=== PATIENT | female | born 1990 | race Asian ===

== ENCOUNTER 2024-06-13 05:11 | Inpatient (IN) | payer MEDICAID, OTHER, SELFPAY ==
[2024-06-10 11:34] LABS: Hematocrit 38.5 % (34.9-44.5); Platelet Count 181 10x3/uL (150-450)
[2024-06-10 12:06] LABS: HBsAg Index 0.21 S/CO (0-0.99); Hep B Surf Ag Non-Reactive S/CO (NonReactive)
[2024-06-10 12:08] LABS: Syphilis Antibody Nonreactive (Nonreactive); Syphilis Antibody Index 0.05 S/CO (<1.00 Non-Reactive)
[2024-06-13 05:59] VITALS: BMI 34.0
[2024-06-13] MEDS ORDERED: Ondansetron PF 4 MG/2 ML Vial IVP PRN ×3 (06:14→08:48)
[2024-06-13] MEDS ORDERED: Promethazine HCl 25 MG/ML VIAL IM PRN ×2 (06:14→08:48)
[2024-06-13] MEDS ORDERED: Acetaminophen 500 MG TAB PO PRN (06:14)
[2024-06-13] MEDS ORDERED: Misoprostol 200 MCG TAB PR PRN ×2 (06:14→08:34)
[2024-06-13] MEDS ORDERED: Methylergonovine 0.2 MG/ML VIAL IM PRN ×2 (06:14→08:34)
[2024-06-13] MEDS ORDERED: Tranexamic Acid 1,000 MG/10 ML VIAL IVP PRN (06:14)
[2024-06-13] MEDS ORDERED: Carboprost 250 MCG/ML AMP IM PRN (06:14)
[2024-06-13] MEDS ORDERED: hydrALAZINE 20 MG/ML VIAL SLOW IVP PRN ×2 (06:14→08:34)
[2024-06-13] MEDS ORDERED: Bicitra 30 ML UDCUP PO PRN (06:14)
[2024-06-13] MEDS ORDERED: Oxytocin 30 units/NS 500 ML 500 ML IV SCH (06:15)
[2024-06-13] MEDS: CEFAZOLIN 2 GM in Sodium Chloride 0.9% 100 ML IVPB SCH (07:05)
[2024-06-13] MEDS: Famotidine/PF 20 mg/2ml Vial SLOW IVP PRN (07:10)
[2024-06-13 07:40] LABS: HIV (1/2) Antibody/Antigen Non-Reactive (NonReactive); HIV 1/2 INDEX 0.11 S/CO (<1.00)
[2024-06-13] MEDS ORDERED: HYDROcodone/Acetaminophen 5/325 mg Tablet PO PRN ×2 (08:34)
[2024-06-13] MEDS ORDERED: Lanolin Ointment 7 GM TUBE TOP PRN (08:34)
[2024-06-13] MEDS ORDERED: Simethicone Chewable 80 MG TAB PO PRN (08:34)
[2024-06-13] MEDS ORDERED: Acetaminophen 325 MG TAB PO PRN (08:34)
[2024-06-13] MEDS ORDERED: Naloxone HCl 0.4 mg/ml Vial IVP PRN ×2 (08:48)
[2024-06-13] MEDS ORDERED: Moisturizing Cream (Eucerin) 113 GM JAR TOP PRN (08:48)
[2024-06-13] MEDS ORDERED: Meperidine HCl/PF 25 MG (1 mL) VIAL SLOW IVP PRN (08:48)
[2024-06-13] MEDS ORDERED: HYDROmorphone 0.5 MG/0.5 ML SYRINGE SLOW IVP PRN (08:48)
[2024-06-13] MEDS ORDERED: diphenhydrAMINE 50 MG/ML VIAL IVP PRN (08:48)
[2024-06-13] MEDS ORDERED: fentaNYL 50 mcg/mL 1 mL Vial SLOW IVP PRN (08:48)
[2024-06-13] MEDS ORDERED: Naloxone HCl 0.4 mg/ml Vial IV PRN (08:48)
[2024-06-13] MEDS ORDERED: Communication Order-Pharmacy FS SCH (09:00)
[2024-06-13] MEDS: Ketorolac Tromethamine 30 MG (1 mL) VIAL IVP SCH (10:49)
[2024-06-13] MEDS: Prenatal Vitamin 1 TAB PO SCH (11:40)
[2024-06-13] MEDS: Boostrix 0.5 ML (Tdap) VIAL (>/=7 yrs of age) IM ONE (11:40)
[2024-06-13] MEDS: Docusate 100 MG CAP PO SCH (11:41)
[2024-06-13] MEDS ORDERED: Ibuprofen 800 MG TAB PO SCH (14:00)
[2024-06-13] MEDS: Ketorolac Tromethamine 30 MG (1 mL) VIAL IVP PRN (21:00)
[2024-06-14 04:00] LABS: Hemoglobin 10.6 g/dL (12.0-15.5); Mean Corpuscular HGB CONC 34.2 g/dL (32.0-36.0); Mean Corpuscular Hemoglobin 29.3 pg (27.0-33.0); Mean Corpuscular Volume 85.6 fL (81.6-98.3); Mean Platelet Volume 9.6 fL (7.4-10.4); Platelet Count 121 10x3/uL (150-450); RBC Distribution Width 13.7 % (11.5-14.5); Red Blood Cell (RBC) Count 3.62 10x6/uL (3.90-5.03); White Blood Cell (WBC) Count 9.5 10x3/uL (3.5-10.5)
[2024-06-14] MEDS: Acetaminophen 325 MG TAB PO SCH ×2 (08:44→21:30)
[2024-06-14] MEDS: HYDROcodone/Acetaminophen 5/325 mg Tablet PO PRN (08:44)
[2024-06-14] MEDS: Ibuprofen 200 MG TAB PO SCH ×2 (13:59→21:30)
[2024-06-15 03:39] LABS: Hematocrit 29.3 % (34.9-44.5); Hemoglobin 10.3 g/dL (12.0-15.5); Mean Corpuscular HGB CONC 35.2 g/dL (32.0-36.0); Mean Corpuscular Hemoglobin 30.1 pg (27.0-33.0); Mean Corpuscular Volume 85.7 fL (81.6-98.3); Mean Platelet Volume 9.5 fL (7.4-10.4); Platelet Count 124 10x3/uL (150-450); RBC Distribution Width 13.8 % (11.5-14.5); Red Blood Cell (RBC) Count 3.42 10x6/uL (3.90-5.03); White Blood Cell (WBC) Count 11.6 10x3/uL (3.5-10.5)
[2024-06-15] MEDS: Morphine PF 10 MG/10 ML VIAL ONE (07:48)
[2024-06-15] MEDS: PHENYLEPHRINE-NS 100 MCG/ML 10 ML SYRINGE ONE (07:48)
[2024-06-15] MEDS: fentaNYL 50 mcg/mL 1 mL Vial ONE (07:48)
[2024-06-15] MEDS: Ondansetron PF 4 MG/2 ML Vial ONE (07:48)
[2024-06-15] MEDS: Oxytocin 10 UNITS/ML VIAL ONE (07:48)
[2024-06-15 11:38] VITALS: BP 117/82; TEMP 98
== END 2024-06-15 16:45 | disposition home or self-care (01) | DRG 788 ==
LOC: CSHLD 05:11 → CSHPP 11:05
PROVIDERS: ADMIT Student in an Organized Health Care Education/Training Program; ATTEND Student in an Organized Health Care Education/Training Program
PROC: 10D00Z1 Extraction of Products of Conception, Low, Open Approach (ICD-10-PCS; principal; 2024-06-13)
DX: O34.211 Maternal care for low transverse scar from previous cesarean delivery (principal); Z3A.39 39 weeks gestation of pregnancy; Z37.0 Single live birth
CPT/HCPCS: 36415; 51702; 85014; 85018; 85027; 85049; 86780; 86850; 86900; 86901; 87340; 87389; J1885; J2274; J2405; J2590; J3010; J3490